=== PATIENT | male | born 1970 | race Caucasian/White ===

== ENCOUNTER → 2020-11-24 | Outpatient (CLI) | payer BC | END | disposition home or self-care (01) | LOC: RAH 13:01 | PROVIDERS: ATTEND Internal Medicine Critical Care Medicine | DX: R20.2 Paresthesia of skin (principal) | CPT/HCPCS: 70547; 70551 ==

== ENCOUNTER → 2020-12-22 | Outpatient (CLI) | payer BC | END | disposition home or self-care (01) | LOC: RAH 10:05 | PROVIDERS: ATTEND Internal Medicine | DX: G46.3 Brain stem stroke syndrome (principal); I10 Essential (primary) hypertension; R55 Syncope and collapse | CPT/HCPCS: 93356; C8929; 96374 ==